=== PATIENT | male | born 1960 | race Caucasian/White ===

== ENCOUNTER 2017-01-28 18:30 | Inpatient (IN) | payer MEDICARE, MEDICAID ==
[~2017-01-28] VITALS: Ht 188 cm; Wt 57.7 kg
[~2017-01-28 18:30] MED LIST: APAP/OXYCODONE1 TA5 PO; ASPI-COR81 M1 PO; ASPIRIN CHILDRE81 M1 PO; BACTRIM DS 8001 TAB; BUPROPION HCL150 M1 PO; CARVEDILOL6.25 M1 PO; COMBIVENT RESPI1 SPR IH; CYCLOBENZAPRINE10 M1 PO; CYMBALTA60 MG PO; DEXAMETHASONE/NE5 M1 OP; DIAZEPAM5 M1 PO; DULOXETINE60 MG PO; FLEXERIL10 MG PO; GABAPENTIN 600600 MG PO; GABAPENTIN300 MG PO; KEFLEX500 M1 PO; LEVAQUIN500 MG PO; LORTAB 5/500 501 TAB PO; LYRICA 100 MG100 MG PO; MEDROL 4MG. DOSE4 MG PO; MIRTAZAPINE30 MG PO; MOTRIN600 M1 PO; NAPROXEN500 M1 PO; NICOTINE PATCH;21 MG TD; NOMEDS XX; NORCO 325 MG-51 TAB PO; OXYCONTIN15 MG PO; PERCOCET 10 MG1 EACH PO; PERCOCET1 TAB PO; PREDNISONE 20MG20 MG PO; ROBAXIN 500 MG500 MG PO; ROBAXIN-750750 MG PO; TESSALON PERLE100 MG PO; TOPIRAMATE50 MG PO; TYLENOL W/CODEI1 TAB PO; VALIUM 10MG TAB10 MG PO; ZITHROMAX Z PA250 MG PO; ZITHROMAX Z-PA250 M1 PO
[2017-01-28 18:35] VITALS: BP 111/52
--- NOTE | 2017-01-28 18:47 | Emergency Room Report ---
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 N Clinical Suspician of Infection? N Mental Status: 1 - Regular (Normal Baseline) Sepsis Risk:Low Sepsis Risk Have you (or family members/close friends) recently traveled outside the [place]? N If Yes, where/when: Have you had exposure to infectious disease within the past month? TB? Other? Specify: Comment The patient has had an illness for 5-6 days with a productive cough, sputum changing from clear to green, wheezing and shortness of breath, feverishness, weakness and poor appetite. He has chronic obstructive pulmonary disease. He has not smoked in the past 3-4 days. He does not use a nebulizer at home, but normally has an inhaler, currently out. ALLERGIES Coded Allergies: methocarbamol (From ROBAXIN) (01/28/17) pregabalin (From LYRICA) (01/28/17) Home Medications Active Scripts ALBUTEROL/IPRATROPIUM (Combivent Respimat Inhal [place]) 1 PUFF IH Q6HP PRN shortness of air, cough. #1 INH Prov: 08/29/14 OXYCODONE HCL/ACETAMINOPHEN (Percocet 5-325 MG Tablet) 1 TAB PO Q6HP PRN pain #20 TAB Prov: 01/13/16 HYDROCODONE/ACETAMINOPHEN ([place] 5-325 Tablet) 1 TAB PO Q6HP PRN pain #20 TAB Prov: 01/19/16 Reported Medications Aspirin (Aspi-Cor) 81 MG PO DAILY DULOXETINE HCL (Cymbalta 60MG) 60 MG PO DAILY Gabapentin (Gabapentin 600MG) 800 MG PO TID Mirtazapine 30 MG PO DAILY #30 Bupropion Hcl (Bupropion HCl Sr) 150 MG PO BID #60 DULOXETINE HCL (Duloxetine) 60 MG PO #30 Naproxen 500 MG PO BID #60 Topiramate 50 MG PO BID #60 Carvedilol 6.25 MG PO BID #60 History Medical History General CAD? No Angina: No [place]: No Hypertension? No Hyperlipidemia? No CHF? No DVT? No PE? No COPD? Yes Asthma? No Anemia? No GERD? No Gastric ulcers? No GI Bleed? No Hernia? Yes Thyroid Problems? No Hypothyroidism? No CVA? No Seizures? No Diabetes? No Insulin Dependent: No Insulin Pump: No Home FSBS? No Renal Insuffiency? No End Stage Renal Disease? No UTI? No Stones? No BPH? No GB Disease: No Nephritic Syndrome? No Asplenia? No Hepatitis? No Sickle Cell Disease? No Arthritis? Yes Migraines? Yes Cataracts? No Glaucoma? No MRSA? No HIV? No TB? No Anxiety? Yes Depression? Yes Cancer? No More? No Immunization Hx Ped.Immunizations UTD Yes DT/Tetanus 10/20/11 Flu 2014-FSN Pneumonia Received In Past Surgical Hx Previous Surgery?Y NECK SX X2 NECK - TITANIUM PLATE C 4 C5 EFFUSION Family History Family Hx Diabetes Yes CAD Yes Hypertension No Hyperlipidemia No Cancer Yes TB No Social History Smoking Hx Smoker: Current Every Day Smoker Tobacco: Yes Type Cigarettes Packs/day 2 1/2 - 3 Packs Alcohol Alcohol: Yes Review of Systems All Other Systems Reviewed and Negative Constitutional fever (subjective) Respiratory cough, shortness of breath, wheezing Gastrointestinal see HPI Physical Exam Vital Signs Vital Signs Date Time Temp Pulse Resp B/P Pulse O2 O2 Flow FiO2 Ox Delivery Rate 01/28 1955 82 20 101/57 90 01/28 1918 100.4 82 20 90/52 90 01/28 1835 98.0 85 18 111/52 92 General Appearance no apparent distress Eye Exam - bilateral eye normal exam, bilateral eye PERRL, bilateral eye EOMI Ear, Nose, Throat hearing grossly normal, normal ENT inspection Neck normal inspection, non-tender, supple, full range of motion Respiratory Status Yes: trachea midline, chest symmetrical, productive cough. No: respiratory distress. Lung Sounds bilateral: wheezing. 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 No Results/Orders Laboratory Tests 01/28/171939: Chlamy pneum (TEM-PCR) Pending, Adenovirus (PCR) Pending, B. pertussis DNA (PCR) Pending, Coronavirus OC43 (PCR) Pending, Coronavirus HKU1 (PCR) Pending, Coronavirus 229E (PCR) Pending, Coronavirus NL63 (PCR) Pending, Human Metapneumovir PCR Pending, Influenza A (H1) PCR Pending, Influ A (H1N1/09) PCR Pending, Influenza A (H3) PCR Pending, Influenza Type A (PCR) Pending, Influenza Type B (PCR) Pending, M. pneumoniae (PCR) Pending, Parainfluenza 1 (PCR) Pending , Parainfluenza 2 (PCR) Pending, Parainfluenza 3 (PCR) Pending, Parainfluenza 4 (PCR) Pending, RSV (PCR) Pending, Entero/Rhino (PCR) Pending 01/28/171914: Lactic Acid 0.6 01/28/171914: Sodium 137, Potassium 3.7, Chloride 100, Carbon Dioxide 31, BUN 9, Creatinine 0.9, Estimated Creat Clear 86, Estimated GFR (MDRD) 87, Glucose 143 H, Calcium 9.1, Total Bilirubin 0.5, AST 20, ALT 31, Alkaline Phosphatase 119 H, Total Protein 7.4, Albumin 3.4, Globulin 4.0 H, Albumin/Globulin Ratio 0.9 L, WBC 10.4, RBC 4.19 L, Hgb 13.4 L, Hct 40.5 L, MCV 96.7, RDW 14.2, Plt Count 268, Gran % 81.5 H, Gran # 8.5 H, Lymphocytes % 14.2, Monocytes % 4.3, Lymphocytes # 1.5, Monocytes # 0.4, PUBS MCHC 33.1, MCH 32.0 H Current Medication Orders Sig/Frank Start time Last Medication Dose Route Stop Time Status Admin Albuterol/Ipratropium 3 ML ONCE ONE 01/28 1945 DC INH 01/28 1946 Levofloxacin/Dextrose 150 ML .STK-MED ONE 01/28 1933 DC IV Albuterol/Ipratropium 0 .STK-MED ONE 01/28 193 DC INH Albuterol 2.5 MG ONCE ONE 01/28 1930 DC INH 01/28 1931 Ibuprofen 600 MG ONCE ONE 01/28 1930 DC 01/28 PO 01/28 Levofloxacin/Dextrose 150 ML ONCE ONE 01/28 1930 r 01/28 IV 01/28 Sodium Chloride 1,000 ML .Q1H1M 01/28 1930 AC 01/28 IV 01/28 Albuterol 0 .STK-MED ONE 01/29 1924 DC INH Sodium Chloride 1,000 ML .STK-MED ONE 01/29 1920 DC IV Ibuprofen 0 .STK-MED ONE 01/28 1919 DC PO Methylprednisolone 0 .STK-MED ONE 01/28 1917 DC Sodium Succinate .ROUTE Methylprednisolone 125 MG ONCE ONE 01/28 190 DC 01/28 Sodium Succinate IV 01/28 Sodium Chloride 10 ML PRN PRN 01/28 1900 AC IV 01/29 184 Albuterol/Ipratropium 3 ML ONCE ONE 01/28 184 DC 01/28 INH 01/28 184 1845 Albuterol/Ipratropium 0 .STK-MED ONE 01/28 184 DC INH Orders Procedure Date/time Status UPPER RESPIRATORY PANEL, PCR 01/28 1935 Active RT REQUEST DUONEB 01/29 1932 Active RT REQUEST ALBUTEROL NEB 01/28 1917 Active IV SALINE LOCK 01/28 1846 Active CULTURE, SPUTUM 01/28 1846 Active CULTURE, BLOOD 01/28 1846 Active LACTIC ACID 01/28 1846 Complete CBC WITH AUTO DIFF 01/28 1846 Complete CHEM 12 PROFILE 01/28 184 Complete RT Aerosol Treatment, Provide 01/29 1840 Active RT REQUEST DUONEB 01/28 183 Active CHEST(2 VIEWS-NOT PORTABLE) 01/28 1838 Active XRAY/CT/US XRAY/CT/US XRAY chest Comment Chest X-ray interpreted by Loi Escobar M.D.: chronic obstructive pulmonary disease. Nodule versus overlapping shadows versus healing rib fracture LEFT base. Increased interstitial markings in the bases. No definite infiltrate seen, but subtle infiltrate possible. Progress - 6:58 PM: Mild improvement after first nebulizer treatment. 7:45 PM: Although definite confluent infiltrate not seen on chest x-ray, pneumonia is certainly possible given his symptomatology. He'll be treated based on the suspicion and chronic obstructive pulmonary disease exacerbation. I have discussed the case with Dr. Alvarado who agrees to admit the patient to the hospital. We discussed the patient's clinical information, including history, exam, laboratory and radiology results and ED course. Dr. Alvarado will put in admit orders. Departure Departure Disposition Still a Patient Clinical Impression Primary Impression: Chronic obstructive pulmonary disease with (acute) exacerbation Secondary Impressions: Acute bronchitis Qualifiers: Bronchitis organism: unspecified organism Qualified Code: J20.9 - Acute bronchitis, unspecified Condition STABLE Referrals Jenny RHODES,Eric May (Family) ED Critical Care Critical Care No If Critical Care minutes are documented, the time involved in the performance of seperately reportable procedures was not counted toward critical care time documented. I directly delivered medical care to this critically ill and/or injured patient. Timely evaluation and treatment was necessary to address the significant organ system(s) dysfunction present in this patient. at 2002
[2017-01-28 19:26] LABS: HEMOGLOBIN 13.4 g/dL (14.1-18.0)
[2017-01-28 19:27] LABS: LYMPH # 1.5 K/mm3 (0.7-4.5); LYMPH % 14.2 % (10-50)
[2017-01-28 19:43] LABS: CORONAVIRUS 229E NOT DETECTED (NOT DETECTE); CORONAVIRUS HKU 1 NOT DETECTED (NOT DETECTE); CORONAVIRUS NL63 NOT DETECTED (NOT DETECTE); CORONAVIRUS OC43 NOT DETECTED (NOT DETECTE)
--- NOTE | 2017-01-28 20:14 | HISTORY AND PHYSICAL REPORT ---
Demographics: Admit date: 01/28/17 Chief complaint: sob PRIMARY DIAGNOSIS: sob Allergies: Coded Allergies: methocarbamol (From ROBAXIN) (01/28/17) pregabalin (From LYRICA) (01/28/17) History of present illness: History of present illness: patient has had an illness for 5-6 days with a productive cough, sputum changing from clear to green, wheezing and shortness of breath, feverishness, weakness and poor appetite. He has chronic obstructive pulmonary disease. He has not smoked in the past 3-4 days. He does not use a nebulizer at home, but normally has an inhaler, currently pt had treated with neb in ed and still had low sat in the ed and abn cxr was admitted with ivf and abx -pt has hx of chf with low ejection fraction Past medical history: Family HX Family Hx Insignificant Yes Immunization HX Ped.Immunizations UTD Yes DT/Tetanus 10/20/11 Flu 2014-FSN Pneumonia Received In Past General CAD? No Angina: No [place]: No Hypertension? No Hyperlipidemia? No CHF? No DVT? No PE? No COPD? Yes Asthma? No Anemia? No GERD? No Gastric ulcers? No GI Bleed? No Hernia? Yes Thyroid Problems? No Hypothyroidism? No CVA? No Seizures? No Diabetes? No Insulin Dependent: No Insulin Pump: No Home FSBS? No Renal Insuffiency? No UTI? No Stones? No BPH? No GB Disease: No Nephritic Syndrome? No Asplenia? No Hepatitis? No Sickle Cell Disease? No Arthritis? Yes Migraines? Yes Cataracts? No Glaucoma? No MRSA? No HIV? No TB? No Anxiety? Yes Depression? Yes Cancer? No More? No Past Surgical HX Previous Surgery?Y NECK SX X2 NECK - TITANIUM PLATE C 4 C5 EFFUSION Current home meds: Active Scripts ALBUTEROL/IPRATROPIUM (Combivent Respimat Inhal [place]) 1 PUFF IH Q6HP PRN shortness of air, cough. #1 INH Prov: 08/29/14 OXYCODONE HCL/ACETAMINOPHEN (Percocet 5-325 MG Tablet) 1 TAB PO Q6HP PRN pain #20 TAB Prov: 01/13/16 HYDROCODONE/ACETAMINOPHEN ([place] 5-325 Tablet) 1 TAB PO Q6HP PRN pain #20 TAB Prov: 01/19/16 Reported Medications Aspirin (Aspi-Cor) 81 MG PO DAILY DULOXETINE HCL (Cymbalta 60MG) 60 MG PO DAILY Gabapentin (Gabapentin 600MG) 800 MG PO TID Mirtazapine 30 MG PO DAILY #30 Bupropion Hcl (Bupropion HCl Sr) 150 MG PO BID #60 DULOXETINE HCL (Duloxetine) 60 MG PO #30 Naproxen 500 MG PO BID #60 Topiramate 50 MG PO BID #60 Carvedilol 6.25 MG PO BID #60 Social Hx: Smoking HX Tobacco Yes Type Cigarettes Packs/day 2 1/2 - 3 PACKS Alcohol Alcohol: Yes Hx of Drug Use Drug Use? No Patien't marital status is Patient's support system is good Review of systems: Constitutional see HPI, weakness. No: fever. Eyes No: drainage. Ears, Nose, Mouth, Throat No ear discharge, No epistaxis, No throat pain Respiratory see HPI, cough, shortness of breath, wheezing. Cardiovascular No chest pain, No palpitations, No syncope Gastrointestinal/Abdominal nausea, poor appetite, poor fluid intake, No vomiting Genitourinary No: dysuria, frequency, hesitancy, hematuria. Musculoskeletal No: back pain, joint pain, joint swelling, neck pain. Skin No: rash. Neurological No: headache, seizure disorder. Psychiatric No: no symptoms reported. Exam: Lab data for last 24 hours: Laboratory Tests 01/29/17 0600: Sodium 139, Potassium 5.0, Chloride 103, Carbon Dioxide 30, BUN 11, Creatinine 0.8, Estimated Creat Clear 82, Estimated GFR (MDRD) 99, Glucose 155 H, Calcium 9.3, WBC 8.4, RBC 4.66, Hgb 14.8, Hct 45.3, MCV 97.2, RDW 13.9, Plt Count 310, Gran % 86.9 H, Gran # 7.3, Lymphocytes % 10.7, Monocytes % 2.4, Lymphocytes # 0.9, Monocytes # 0.2, PUBS MCHC 32.7, MCH 31.8 H 01/28/17 1940: Chlamy pneum (TEM-PCR) NOT DETECTED, Adenovirus (PCR) NOT DETECTED, B. pertussis DNA (PCR) NOT DETECTED, Coronavirus OC43 (PCR) NOT DETECTED, Coronavirus HKU1 ( PCR) NOT DETECTED, Coronavirus 229E (PCR) NOT DETECTED, Coronavirus NL63 (PCR) NOT DETECTED, Human Metapneumovir PCR NOT DETECTED, Influenza A (H1) PCR NOT DETECTED, Influ A (H1N1/09) PCR NOT DETECTED, Influenza A (H3) PCR NOT DETECTED, Influenza Type A (PCR) NOT DETECTED, Influenza Type B (PCR) NOT DETECTED, M. pneumoniae (PCR) NOT DETECTED, Parainfluenza 1 (PCR) NOT DETECTED, Parainfluenza 2 (PCR) NOT DETECTED, Parainfluenza 3 (PCR) NOT DETECTED, Parainfluenza 4 (PCR) NOT DETECTED, RSV (PCR) NOT DETECTED, Entero/Rhino (PCR) DETECTED H 01/28/171914: Lactic Acid 0.6 01/28/171914: Creatine Kinase 52, CK-MB (CK-2) Rel Index 1.7, CK and CKMB Interp 0.9, Troponin I < 0.02, B-Natriuretic Peptide 7 01/28/171914: Sodium 137, Potassium 3.7, Chloride 100, Carbon Dioxide 31, BUN 9, Creatinine 0.9, Estimated Creat Clear 86, Estimated GFR (MDRD) 87, Glucose 143 H, Calcium 9.1, Total Bilirubin 0.5, AST 20, ALT 31, Alkaline Phosphatase 119 H, Total Protein 7.4, Albumin 3.4, Globulin 4.0 H, Albumin/Globulin Ratio 0.9 L, WBC 10.4, RBC 4.19 L, Hgb 13.4 L, Hct 40.5 L, MCV 96.7, RDW 14.2, Plt Count 268, Gran % 81.5 H, Gran # 8.5 H, Lymphocytes % 14.2, Monocytes % 4.3, Lymphocytes # 1.5, Monocytes # 0.4, PUBS MCHC 33.1, MCH 32.0 H Microbiology 01/28 1915 BLOOD: Anaerobic Blood Culture - RECD 01/28 1915 BLOOD: Aerobic Blood Culture - RECD 01/28 1915 BLOOD: Anaerobic Blood Culture - RECD 01/28 1915 BLOOD: Aerobic Blood Culture - RECD 01/28 1846 SPUTUM: Sputum Culture - ORD 01/28 1846 SPUTUM: Gram Stain - ORD Admission vital signs: 1ST Vital Signs Result Date Time Pulse Ox 92 01/28 1835 B/P 111/52 01/28 1835 Temp 98.0 01/28 1835 Pulse 85 01/28 183 Resp 18 01/28 1835 O2 Delivery ROOM AIR 01/28 2035 O2 Flow Rate 2 01/29 0545 Exam General appearance: alert, awake Eyes: anicteric, PERRLA ENT: dry mucous membranes Neck: no JVD Cardiovascular: regular rate & rhythm, murmur Respiratory: on oxygen, diminished breath sounds, rhonchi ABD: soft Genitourinary: no hematuria Extremities: moves all Musculoskeletal: equal muscle strength Skin: dry 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 COPD (chronic obstructive pulmonary disease) 2. Chronic obstructive pulmonary disease with (acute) exacerbation 3. CAP (community acquired pneumonia) Plan: will ask card to see pt also has has sig cardiac disease at 0713
[2017-01-28 20:35] VITALS: BP 101/55
[2017-01-28 20:59] LABS: RHINOVIRUS/ENTEROVIRUS DETECTED (NOT DETECTE)
[2017-01-29 04:45] VITALS: BP 140/52
--- NOTE | 2017-01-29 05:09 | RADIOLOGY REPORT PS360 ---
CHEST(2 VIEWS-NOT PORTABLE) HISTORY: Cough, congestion, smoker COUGH,CONGESTION ORDERING PHYSICIAN: Loi Escobar MD PATIENT AGE: 56 years COMPARISON: 01/13/2016 FINDINGS: The cardiomediastinal silhouette and pulmonary vascularity are within normal limits. Hyperinflation with attenuation of the peripheral pulmonary vessels and coarsening of the bronchovascular markings consistent with obstructive chronic bronchitis. There are increased markings in the right lower lobe consistent with underlying atelectasis or infiltrate/peribronchial inflammatory change. There is a 16 mm nodular opacity overlying the left lower lobe at the sixth rib anteriorly not readily apparent on the previous study possibly related to nipple shadow. An underlying pulmonary nodule however is not excluded. Healing rib fractures are also a consideration. Consider chest CT evaluation. No acute bony anomalies. There are old left-sided rib fractures and there is a bone plate over the lower cervical spine. IMPRESSION: 1. Obstructive chronic bronchitis with patchy infiltrate in the right lower lung zone. 2. New opacity in the left lower lung zone which may be due to nipple shadow, pulmonary nodule, or healing rib fracture. Consider diagnostic chest CT (NOT low dose screening scan) for further evaluation in this patient with smoking history
[2017-01-29 06:59] LABS: HEMOGLOBIN 14.8 g/dL (14.1-18.0)
[2017-01-29 07:00] LABS: LYMPH # 0.9 K/mm3 (0.7-4.5); LYMPH % 10.7 % (10-50)
--- NOTE | 2017-01-29 07:51 | PHARMACY CLINIC NOTE ---
Patient Demographics Patient Demographics Admission date: 01/28/17 Date: 01/29/17 Time: 075 Allergies Coded Allergies: methocarbamol (From ROBAXIN) (01/28/17) pregabalin (From LYRICA) (01/28/17) HEIGHT- FT: 6 IN: 2.00 [id number] VTE General Information Labs: Laboratory Tests 01/29 01/28 0600 1915 Hematology Hgb (14.1 - 18.0 g/dL) 14.8 13.4 L Hct (42.0 - 52.0 %) 45.3 40.5 L Plt Count (142 - 424 K/mm3) 310 268 Disclaimer The following section includes nursing documentation that has been pulled in for pharmacy review. Patient's VTE score: 3 Patient's VTE Risk: LOW RISK Clinical trial participant? No VTE prophylaxis [id number] [id number] VTE prophylaxis ordered? Yes Type of prophylaxis/treatment: YONAS at 0751
[2017-01-29 08:00] VITALS: BP 93/56
[2017-01-29] MEDS ORDERED: GABAPENTIN800 MG PO (08:32)
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
[2017-01-29] MEDS ORDERED: ENTRESTO 24 MG1 EACH PO (09:01)
[2017-01-29] MEDS ORDERED: TIZANIDINE HCL 44 MG PO (09:03)
--- NOTE | 2017-01-29 10:12 | RADIOLOGY REPORT PS360 ---
CT CHEST W/O CONTRAST HISTORY: COUGH,ABNORMAL CXR, tobacco abuse ORDERING PHYSICIAN: Eric Alvarado MD PATIENT AGE: 56 years TECHNIQUE: Helical acquisition obtained without contrast. Axial, sagittal, and coronal reformatted images are generated and reviewed. COMPARISON: Radiograph of 01/28/2017 FINDINGS: Atherosclerotic vascular disease involves the great vessels. Normal heart size. No mediastinal or hilar mass evident. No central obstructing lesion. Calcified node is present in the left hilum. No mediastinal or hilar adenopathy. Centrilobular emphysematous changes are present scattered areas of pulmonary fibrosis. Hyperinflation with bronchial thickening consistent with obstructive chronic bronchitis. Minimal atelectatic or fibrotic changes present in the right middle lobe. Calcified granulomas present in the lingula. No suspicious nodules are evident in the left lower lobe. There is a healing rib fracture on the left posteriorly involving the 11th and 10th ribs. Pulmonary nodule seen on the radiograph may been due to the 10th rib fracture with overlying callus formation. No effusions or infiltrates. IMPRESSION: 1. Centrilobular emphysematous changes with scattered areas of pulmonary fibrosis and obstructive chronic bronchitis. 2. Radiographic abnormality corresponds to a healing left 10th rib fracture with callus formation. 3. Minimal atelectatic atelectasis versus patchy infiltrate in the right middle lobe likely candidate for the right-sided radiographic abnormality
[2017-01-29 11:55] LABS: NEUTROPHILS 83 % (42-76)
--- NOTE | 2017-01-29 12:05 | ACUTE CARE PROGRESS NOTE (QUA) ---
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 COPD (chronic obstructive pulmonary disease) 2. Chronic obstructive pulmonary disease with (acute) exacerbation 3. CAP (community acquired pneumonia) 4. Cardiomyopathy 5. Left rib fracture 6. Tobacco use Patient condition Improving Plan: initiate discharge plan This inpt stay is expected to cross 2 MNs from start of care Yes Comments: will d/c and provide close follow up and place on abx/prednisone at 1209
--- NOTE | 2017-01-29 12:05 | ACUTE CARE PROGRESS NOTE (QUA) ---
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 COPD (chronic obstructive pulmonary disease) 2. Chronic obstructive pulmonary disease with (acute) exacerbation 3. CAP (community acquired pneumonia) 4. Cardiomyopathy 5. Left rib fracture 6. Tobacco use Patient condition Improving Plan: initiate discharge plan This inpt stay is expected to cross 2 MNs from start of care Yes Comments: will d/c and provide close follow up and place on abx/prednisone at 1201
--- NOTE | 2017-01-29 12:08 | DISCHARGE SUMMARY STANDARD ---
Demographics Admit date: 01/28/17 Discharge date: 01/29/17 History of present illness History of present illness patient has had an illness for 5-6 days with a productive cough, sputum changing from clear to green, wheezing and shortness of breath, feverishness, weakness and poor appetite. He has chronic obstructive pulmonary disease. He has not smoked in the past 3-4 days. He does not use a nebulizer at home, but normally has an inhaler, currently pt had treated with neb in ed and still had low sat in the ed and abn cxr was admitted with ivf and abx -pt has hx of chf with low ejection fraction The above per Dr. Alvarado. Pt denies any recent chest pain, pressure or tightness. He has noticed about an unintentional 20 pound weight loss in the last couple of years despite eating voraciously. Patient relates he has discontinued his Coreg sometime in the last year thinking that he did not need that. He admits to continuing Entresto stating he thought that was the only one for his heart. Cardiology consulted for evaluation and recommendations. BNP is 7 with chest x-ray showing no evidence of congestive heart failure. Concern for possible pulmonary malignancy on chest x- ray. CT has been recommended and is to be performed. Preliminary echocardiogram today shows ejection fraction of 40-45 percent with LEFT ventricular internal dimensions in systole and diastole improved compared with echocardiogram from . Hospital Course Hospital Course: pt did well with iv abx and steroids and had ct which showed copd/healing rib fx and cap/bronchitis and echo was stable with card consult noted Discharge diagnoses Problem List 1. COPD (chronic obstructive pulmonary disease) 2. Chronic obstructive pulmonary disease with (acute) exacerbation 3. CAP (community acquired pneumonia) 4. Cardiomyopathy 5. Left rib fracture 6. Tobacco use Medications Medications: Discharge meds are as noted. Follow up Follow up in office in: 7 DAYS with: Maria Teresa Alexandre Comment: will see next week and fluids and abx with steroids at 3777
[2017-01-29] MEDS ORDERED: PREDNISONE 20MG20 MG PO (12:12)
[2017-01-29] MEDS ORDERED: LEVAQUIN500 MG PO (12:12)
[2017-01-29 14:19] VITALS: BP 140/52
--- NOTE | 2017-01-30 15:45 | RADIOLOGY REPORT PS360 ---
PROCEDURE: 2-D M-mode and color Doppler study INDICATIONS FOR THE TEST: Chest pain COPD+ Heart Murmur Tobacco Smoking+ Palpitations Fatigue Syncope Edema Hypertension Diabetes Mellitus Rheumatic Fever SOB SAEZ Obesity Hyperlipidemia Family History HD Additional History PATIENT INFORMATION HEIGHT: 74 WEIGHT:150 GENDER: Male B/P: 2-D/M-MODE INTERPRETATION: 2-D MEASUREMENTS OBSERVED VALUES IN CMS Right Ventricular Dimension (RVDd) 2.0 Interventricular Septum (Thickness)(IVsd) 1.1 Left Ventricular Internal Dimensions(LVIDd) 4.7 Left Ventricular Posterior Wall (Thickness)(LVPWd) 1.1 Aortic Root 3.6 Aortic Cusp Separation 2.2 Left Atrial Dimensions (LAD) 3.7 2D 1. Left atrium is normal size, left ventricle is normal size, left ventricle wall thickness is upper limit of the normal, visually estimated ejection fraction of 55% with no obvious regional wall motion abnormality. 2. The right atrium and right ventricle are relatively normal size and function. 3. The aortic valve is minimally thickened and fibrosed, aortic stenosis. 4. The mitral and tricuspid valve are grossly normal. 5. The pulmonic valve is poorly visualized. 6. No significant pericardial effusion noted. DOPPLER INTERROGATION: Doppler interrogation of the aortic, mitral and tricuspid valvular presence of mild mitral and tricuspid regurgitation, tricuspid and jet velocity is insufficient for calculation of the right ventricular systolic pressure, diastolic parameters are within normal range. CONCLUSION: 1. Normal left ventricular size, preserved left ventricular systolic function, visually estimated ejection fraction 55% with no obvious regional wall motion abnormality. Diastolic parameters are within normal range. 2. Mild mitral and tricuspid regurgitation. 3. No significant pericardial effusion noted.
== END 2017-01-29 14:20 | disposition home or self-care (01) | DRG 190 ==
LOC: ER 18:30 → 2ND 19:56 → ER 19:56 → 2ND 20:31
PROVIDERS: Emergency Medicine
DX: J44.1 Chronic obstructive pulmonary disease with (acute) exacerbation (principal); J18.9 Pneumonia, unspecified organism; I42.8 Other cardiomyopathies; Z72.0 Tobacco use; I25.5 Ischemic cardiomyopathy